=== PATIENT | male | born 1985 | race Caucasian/White ===

== ENCOUNTER 2020-03-17 22:55 | Emergency (ER) | payer SELFPAY ==
[~2020-03-17] VITALS: Ht 170.2 cm; Wt 81.0 kg
[2020-03-17 22:55] VITALS: BP 142/70
--- NOTE | 2020-03-17 23:42 | PHYS DOC ---
General Adult EDM: Chief Complaint: NAUSEA/VOMITING/DIARRHEA HPI: HPI: 34-year-old male coming in for multiple episodes of emesis today. Was seen in urgent care and given a dissolvable nausea medicine but has not worked. Was tested for coverage, patient denies any cough or fever. Says he has had this multiple times in the past and is usually improved after taking a warm shower. Denies any diarrhea. Says he thinks he is lactose intolerant but ate dairy products for breakfast. Admits to almost daily marijuana use. Review of Systems: Review of Systems: Constitutional: Denies fever or chills Eyes: Denies change in visual acuity HENT: Denies nasal congestion or sore throat Respiratory: Denies cough or shortness of breath Cardiovascular: Denies chest pain or edema GI: Mild diffuse abdominal pain, nausea and vomiting, no diarrhea or constipation : Denies dysuria Musculoskeletal: Denies back pain or joint pain Integument: Denies rash Neurologic: Denies headache, focal weakness or sensory changes Endocrine: Denies polyuria or polydipsia Lymphatic: Denies swollen glands Psychiatric: Denies depression or anxiety Heart Score: Risk Factors: Risk Factors: DM, Current or recent (<one month) smoker, HTN, HLP, family history of CAD, obesity. Risk Scores: Score 0 - 3: 2.5% MACE over next 6 weeks - Discharge Home Score 4 - 6: 20.3% MACE over next 6 weeks - Admit for Clinical Observation Score 7 - 10: 72.7% MACE over next 6 weeks - Early Invasive Strategies Current Medications: Current Meds: Current Medications Medications (Trade) Dose Ordered Sig/Abbie Start Time Stop Time Status Last Admin Dose Admin Diphenhydramine HCl (Benadryl) 25 mg 1X ONCE 03/17/20 23:45 03/17/20 23:46 UNV Haloperidol Lactate (Haldol) 5 mg 1X ONCE 03/17/20 23:45 03/17/20 23:46 UNV Physical Exam: PE: Constitutional: Well developed, well nourished, no acute distress, non-toxic appearance. [] HENT: Normocephalic, atraumatic, bilateral external ears normal, oropharynx moist, no oral exudates, nose normal. [] Eyes: PERRLA, EOMI, conjunctiva normal, no discharge. [] Neck: Normal range of motion, no tenderness, supple, no stridor. [] Cardiovascular:Heart rate regular rhythm, no murmur [] Lungs & Thorax: Bilateral breath sounds clear to auscultation [] Abdomen: Bowel sounds normal, soft, no tenderness, no masses, no pulsatile masses. [] Skin: Warm, dry, no erythema, no rash. [] Back: No tenderness, no CVA tenderness. [] Extremities: No tenderness, no cyanosis, no clubbing, ROM intact, no edema. [] Neurologic: Alert and oriented X 3, normal motor function, normal sensory function, no focal deficits noted. [] Psychologic: Affect normal, judgement normal, mood normal. [] EKG: EKG: [] Radiology/Procedures: Radiology/Procedures: [] Course & Med Decision Making: Course & Med Decision Making Pertinent Labs and Imaging studies reviewed. (See chart for details) Tolerating p.o. after Haldol and Benadryl. Symptoms consistent with cannabinoid hyperemesis syndrome. Discussed cessation of marijuana use [] Dragon Disclaimer: Dragon Disclaimer: This electronic medical record was generated, in whole or in part, using a voice recognition dictation system. Departure Departure: Impression: Primary Impression: Nausea & vomiting Disposition: 01 DC HOME SELF CARE/HOMELESS Condition: STABLE Referrals: PCP,JANENE (PCP) Patient Instructions: Nausea and Vomiting Scripts Capsaicin (CAPSAICIN) 42.5 Gm Cream..g. 1 JUAN TP TID PRN for VOMITING for 7 Days, #1 TUBE 1 Refill Prov: ELIESER GUILLEN MD 03/18/20 ELIESER GUILLEN MD Mar 17, 2020 23:42
[2020-03-18] MEDS ORDERED: diphenhydrAMINE 50 MG/ML VIAL IM ONE
[2020-03-18] MEDS ORDERED: HALOPERIDOL LACT 5 MG/ML VIAL. IM ONE
[2020-03-18] MEDS ORDERED: CAPS42.514 TP (00:28)
== END 2020-03-18 00:34 | disposition home or self-care (01) ==
LOC: ER 22:55
DX: R10.84 Generalized abdominal pain (principal); R11.2 Nausea with vomiting, unspecified; F12.90 Cannabis use, unspecified, uncomplicated
CPT/HCPCS: 96372; 99284; J1200; J1630